=== PATIENT | male | born 1995 | race Two or more races ===

== ENCOUNTER → 2024-08-02 | Outpatient (CLI) | payer MEDICAID, SELFPAY | END | disposition home or self-care (01) | LOC: SWHD 11:07 | PROVIDERS: PCP Family Medicine; Referring Provider Family Medicine; Visit Provider Student in an Organized Health Care Education/Training Program | DX: L97.512 Non-pressure chronic ulcer of other part of right foot with fat layer exposed (principal); L97.518 Non-pressure chronic ulcer of other part of right foot with other specified severity; S90.424A Blister (nonthermal), right lesser toe(s), initial encounter; X58.XXXA Exposure to other specified factors, initial encounter; I10 Essential (primary) hypertension; E11.40 Type 2 diabetes mellitus with diabetic neuropathy, unspecified; Z79.4 Long term (current) use of insulin; F17.200 Nicotine dependence, unspecified, uncomplicated; R60.0 Localized edema | CPT/HCPCS: 97597; A9270 ==

== ENCOUNTER → 2024-09-03 | Outpatient (CLI) | payer MEDICAID, SELFPAY | END | disposition home or self-care (01) | LOC: SWHD 09:22 | PROVIDERS: PCP Family Medicine; Referring Provider Family Medicine; Visit Provider Student in an Organized Health Care Education/Training Program | DX: I96 Gangrene, not elsewhere classified (principal); L97.511 Non-pressure chronic ulcer of other part of right foot limited to breakdown of skin; L97.512 Non-pressure chronic ulcer of other part of right foot with fat layer exposed; S90.424A Blister (nonthermal), right lesser toe(s), initial encounter; X58.XXXA Exposure to other specified factors, initial encounter; I10 Essential (primary) hypertension; E11.40 Type 2 diabetes mellitus with diabetic neuropathy, unspecified; Z79.4 Long term (current) use of insulin; F17.200 Nicotine dependence, unspecified, uncomplicated; R60.0 Localized edema | CPT/HCPCS: 97597; A9270 ==

== ENCOUNTER → 2024-09-17 | Outpatient (CLI) | payer MEDICAID, SELFPAY | END | disposition home or self-care (01) | PROVIDERS: PCP Family Medicine; Referring Provider Family Medicine; Visit Provider Surgery | DX: I96 Gangrene, not elsewhere classified (principal); L97.511 Non-pressure chronic ulcer of other part of right foot limited to breakdown of skin; L97.512 Non-pressure chronic ulcer of other part of right foot with fat layer exposed; S90.424A Blister (nonthermal), right lesser toe(s), initial encounter; X58.XXXA Exposure to other specified factors, initial encounter; I10 Essential (primary) hypertension; E11.40 Type 2 diabetes mellitus with diabetic neuropathy, unspecified; Z79.4 Long term (current) use of insulin; F17.200 Nicotine dependence, unspecified, uncomplicated; R60.0 Localized edema | CPT/HCPCS: 99213; A9270; G0463 ==

== ENCOUNTER → 2024-09-23 | Outpatient (CLI) | payer MEDICAID, SELFPAY | END | disposition home or self-care (01) | PROVIDERS: PCP Family Medicine; Referring Provider Family Medicine; Visit Provider Student in an Organized Health Care Education/Training Program | DX: I96 Gangrene, not elsewhere classified (principal); L97.511 Non-pressure chronic ulcer of other part of right foot limited to breakdown of skin; S90.424A Blister (nonthermal), right lesser toe(s), initial encounter; X58.XXXA Exposure to other specified factors, initial encounter; I10 Essential (primary) hypertension; E11.40 Type 2 diabetes mellitus with diabetic neuropathy, unspecified; Z79.4 Long term (current) use of insulin; F17.200 Nicotine dependence, unspecified, uncomplicated; R60.0 Localized edema | CPT/HCPCS: 97597 ==

== ENCOUNTER → 2024-10-01 | Outpatient (CLI) | payer MEDICAID, SELFPAY | END | disposition home or self-care (01) | LOC: SWHD 13:15 | PROVIDERS: PCP Family Medicine; Referring Provider Family Medicine; Visit Provider Student in an Organized Health Care Education/Training Program | DX: I96 Gangrene, not elsewhere classified (principal); L97.518 Non-pressure chronic ulcer of other part of right foot with other specified severity; S90.424A Blister (nonthermal), right lesser toe(s), initial encounter; X58.XXXA Exposure to other specified factors, initial encounter; I10 Essential (primary) hypertension; E11.40 Type 2 diabetes mellitus with diabetic neuropathy, unspecified; Z79.4 Long term (current) use of insulin; F17.200 Nicotine dependence, unspecified, uncomplicated; R60.0 Localized edema | CPT/HCPCS: 97597 ==

== ENCOUNTER 2025-04-03 15:45 | Emergency (ER) | payer MEDICAID, SELFPAY ==
[2025-04-03 16:00] VITALS: BP 151/90; PULSE 105; RESP 20; TEMP 36.9; O2SAT 98
--- NOTE | 2025-04-03 16:18 | XR_ITS ---
Examination: Foot, left, 3 views Technique: AP, oblique, lateral views foot, 3 views Date and time of exam: April 03, 2025 1626 hours INDICATIONS: Foot pain 2 weeks with blood blister FINDINGS: Adequate bone density. No fracture or dislocation. No cortical bone destruction. No opaque foreign body IMPRESSION: No fracture or cortical bone destruction No foreign body. Soft tissue vascular calcification
--- NOTE | 2025-04-03 16:18 | XR_ITS ---
Examination: Foot, right, 3 views Technique: AP, oblique, lateral views foot, 3 views Date and time of exam: Visualized extremity thousand 25, 1626 hours INDICATIONS: Right foot pain beginning 2 weeks ago, no injury. FINDINGS: Moderate bunion deformity with soft tissue swelling at the first metatarsophalangeal joint. No fracture. Small erosions distal first metatarsal No foreign bodies IMPRESSION: Moderate bunion deformity Small erosions distal first metatarsal, differential would include gouty arthropathy
[2025-04-03 16:36] LABS: Basophils # (Auto) 0.0 Thou/mm3 (0.0-0.2); Basophils % (Auto) 1 % (0-2.5); Eosinophils # (Auto) 0.1 Thou/mm3 (0.0-0.5); Eosinophils % (Auto) 1 % (0-10); Hematocrit 39.8 % (41.0-53.0); Hemoglobin 13.8 g/dL (13.5-16.0); Immature Granulocytes Auto 0.02 Thou/mm3 (0.00-0.00); Lymphocytes # (Auto) 2.2 Thou/mm3 (1.0-4.8); Lymphocytes % (Auto) 31 % (10-50); Mean Corpuscular HGB Conc 34.7 g/dl (31.0-37.0); Mean Corpuscular Hemoglobin 30.2 pg (25.0-35.0); Mean Corpuscular Volume 87 fL (80-100); Monocytes # (Auto) 0.7 Thou/mm3 (0.0-0.8); Monocytes % (Auto) 9 % (0-12); Neutrophils # (Auto) 4.2 Thou/mm3 (1.8-7.7); Neutrophils % (Auto) 58 % (37-80); Nucleated Red Blood Cell # 0.00 Thou/mm3 (0.00-0.00); Nucleated Red Blood Cell % 0 /100 WBC (0); Platelet Count 316 Thou/mm3 (140-440); RDW Standard Deviation 39.7 fL (35.1-43.9); Red Blood Count 4.57 Miln/mm3 (4.50-5.90); White Blood Count 7.2 Thou/mm3 (3.8-10.6)
[2025-04-03 16:58] LABS: Alanine Aminotransferase 42 U/L (10-49); Albumin, Serum 4.4 gm/dL (3.5-5.0); Albumin/Globulin Ratio 1.5 (1.2-2.2); Alkaline Phosphatase 146 U/L (46-116); Anion Gap 9 (7-16); Aspartate Amino Transferase 23 U/L (0-34); BUN/Creatinine Ratio 10 Ratio (12-20); Bilirubin,Total 0.5 mg/dL (0.3-1.2); Blood Urea Nitrogen 17 mg/dL (9-23); C-Reactive Protein < 0.5 mg/dL (0.0-0.9); Calcium 9.2 mg/dL (8.3-10.6); Calcium (Corrected) 9.2 mg/dL (8.5-10.1); Carbon Dioxide 28.2 mMol/L (20.0-31.0); Chloride 101 mMol/L (98-107); Creatinine (Component) 1.7 mg/dL (0.6-1.3); Globulin 3.0 gm/dL (2.3-3.5); Glucose 265 mg/dL (74-106); Osmolality,Calculated 286 (275-295); Potassium 4.4 mMol/L (3.4-5.1); Sodium 138 mMol/L (136-145); Total Protein 7.4 gm/dL (5.7-8.2); eGFR 54 See Note
--- NOTE | 2025-04-03 17:17 | PD.EDRME ---
Rapid Medical Screening Exam E Arrival date/time: 04/03/25 15:45 This is a 30-year-old male that comes into the emergency room with complaints of wounds to his left lower foot and also wounds in between his 1st and 2nd digit on his toes. Patient states he has had grain green in the past. Patient reports he is an uncontrolled diabetic and states he has not been take care of his diabetes. Patient also has a history of high blood pressure. Patient denies fever or chills. I have greeted and performed a focused initial assessment of this patient. Initial appropriate labs ordered at this time. A comprehensive ED assessment and evaluation of the patient and analysis of all test and completion of medical decision making process will be conducted by additional ED provider. Chief Complaint: Skin/Abscess/Foreign Body Time Seen by Provider: 04/03/25 15:54 Vital signs: Vital Signs Temperature 98.5 F 04/03/25 16:00 Pulse Rate 105 H 04/03/25 16:00 Respiratory Rate 20 04/03/25 16:00 Blood Pressure 151/90 H 04/03/25 16:00 Pulse Oximetry (%) 98 04/03/25 16:00 Oxygen Delivery Method Room Air 04/03/25 16:00
[2025-04-03] MEDS: SODIUM CHLORIDE 0.9% 1000 ML 1,000 ML 999 ML IV (19:39)
[2025-04-03] MEDS: Vancomycin Inj 1,000 MG in SODIUM CHLORIDE 0.9% 250 ML 250 ML 150 MG IV (19:52)
[2025-04-03 20:15] LABS: Uric Acid 7.3 mg/dL (3.7-9.2)
--- NOTE | 2025-04-03 21:16 | PD.EDSKIN ---
ED Skin Abcess FB-RME/HPI General Chief complaint: Skin/Abscess/Foreign Body Stated complaint: BLOOD BLISTER LEFT FOOT Time Seen by Provider: 04/03/25 15:54 Arrival date/time: 04/03/25 15:45 This is a 30-year-old male that comes into the emergency room with complaints of wounds to his left lower foot and also wounds in between his 1st and 2nd digit on his toes. . Patient reports he is an uncontrolled diabetic and states he has not been take care of his diabetes. Patient also complaining of right foot pain because of bunion Limitations: no limitations RME / HPI RME / HPI narrative: 04/03/25 15:45 This is a 30-year-old male that comes into the emergency room with complaints of wounds to his left lower foot and also wounds in between his 1st and 2nd digit on his toes. Patient states he has had grain green in the past. Patient reports he is an uncontrolled diabetic and states he has not been take care of his diabetes. Patient also has a history of high blood pressure. Patient denies fever or chills. I have greeted and performed a focused initial assessment of this patient. Initial appropriate labs ordered at this time. A comprehensive ED assessment and evaluation of the patient and analysis of all test and completion of medical decision making process will be conducted by additional ED provider. Related Data Home Medications ?Medication ?Instructions ?Recorded ?Confirmed insulin glargine 100 unit/mL (3 15 unit subcut QDAY 07/17/24 07/17/24 mL) subcutaneous pen (Basaglar KwikPen U-100 Insulin) insulin glargine 100 unit/mL (3 20 unit subcut HS 07/17/24 07/17/24 mL) subcutaneous pen (Basaglar KwikPen U-100 Insulin) Previous Rx's ?Medication ?Instructions ?Recorded blood sugar diagnostic (Accu-Chek #50 ea 07/20/24 Karena Plus test strips) blood-glucose sensor (FreeStyle #2 ea 07/20/24 Adriana 3 Sensor device) lancets 18 gauge #100 ea 07/20/24 losartan 25 mg tablet 25 mg PO QDAY #30 tabs 07/20/24 clindamycin HCl 300 mg capsule 300 mg PO Q6H #40 caps 04/03/25 doxycycline monohydrate 100 mg 100 mg PO BID #20 caps 04/03/25 capsule mupirocin 2 % topical ointment 1 applic topical TID #22 grams 04/03/25 Allergies Allergy/AdvReac Type Severity Reaction Status Date / Time No Known Allergies Allergy Verified 04/03/25 15:46 Review of Systems Review of Systems Systems Reviewed: All systems reviewed, normal except as documented Constitutional Constitutional: Reports system reviewed and no additional complaints, except as documented and Reports as per HPI Cardiovascular Cardiovascular: Reports system reviewed and no additional complaints, except as documented and Reports as per HPI Respiratory Respiratory: Reports system reviewed and no additional complaints, except as documented and Reports as per HPI Musculoskeletal Musculoskeletal: Reports system reviewed and no additional complaints, except as documented, Reports as per HPI and Reports other (Foot pain) Integumentary/Breasts Skin/Breast: Reports other (Blister) Neurologic Neurologic: Reports system reviewed and no additional complaints, except as documented and Reports as per HPI Past Medical History Past Medical History CARDIAC: Negative Cardiac Disorders or Congestive Heart Failure RESPIRATORY: Negative Chronic Obstructive Pulmonary Disease (COPD) or Asthma GENITOURINARY: Negative Renal Disease ENDOCRINE: Positive Diabetes Mellitus Type 2; Negative Endocrine Disorders or Diabetes Mellitus Type 1 HEMATOLOGIC: Negative Sickle Cell Disease Family History FAMILY HISTORY: Negative Family Cardiac Disorders Social History SMOKING STATUS: Current every day smoker ED Exam General Limitations: Present no limitations General appearance: Present alert and in no apparent distress Head Head exam: Present atraumatic Eye Eye exam: Present normal appearance, PERRL and EOMI ENT ENT exam: Present normal exam, normal oropharynx and mucous membranes moist Neck Neck exam: Present normal inspection, full ROM and trachea midline; Absent tenderness, meningismus, lymphadenopathy or thyromegaly Chest Chest inspection: Present normal inspection and symmetric chest wall rise; Absent tenderness, rash or abscess Respiratory Respiratory exam: Present normal lung sounds bilaterally; Absent respiratory distress, wheezes, stridor, accessory muscle use or prolonged expiratory phase Cardiovascular Cardiovascular exam: Present regular rate, normal rhythm and normal heart sounds; Absent bradycardia, tachycardia, irregular rhythm or systolic murmur Abdominal Exam Abdominal exam: Present soft and normal bowel sounds Extremities Exam Extremities exam: Present normal inspection and full ROM Expanded Lower Extremity Exam Foot/toe exam: Present tenderness and other (Noted a woundOn the right great toe and some redness on the second toe of the right foot seems infected no cellulitis no abscess no open wound no ulcer ROM intact neurovascular intact patient also noted to have blister on the left plantar foot but no abscess no cellulitis no undermining no ulcer ROM); Absent swelling, abrasion, laceration, ecchymosis, deformity, crepitus, dislocation, erythema, amputation, puncture wound, foreign body, calcaneal tenderness, tenderness at base of 5th metatarsal, nail avulsion or subungual hematoma Back Exam Back exam: Present normal inspection and full ROM Neurological Exam Neurological exam: Present alert, oriented X3, CN II-XII intact, normal gait and reflexes normal; Absent motor sensory deficit Psychiatric Psychiatric exam: Present normal affect and normal mood Skin Skin exam: Present warm, dry, intact, normal color and other (Noted blister on the left plantar foot and redness swelling on the second toe right foot no abscess no cellulitis) Course Quality Measures none Orders Category Date Time Status XR foot comp LT min 3V Stat Exams 04/03/25 16:18 Completed XR foot comp RT min 3V Stat Exams 04/03/25 16:18 Completed Blood Culture (Lab) Stat Lab 04/03/25 16:28 Received CBC Stat Lab 04/03/25 16:28 Completed CRP [C-Reactive Protein] Stat Lab 04/03/25 16:28 Completed Comprehensive Metabolic Panel Stat Lab 04/03/25 16:28 Completed Uric Acid Stat Lab 04/03/25 16:28 Completed Sodium Chloride 0.9% 1000 ml [Ns] 1,000 ml Med 04/03/25 19:23 Discontinued IV 999 mls/hr Vancomycin Inj 1,000 mg Med 04/03/25 19:23 Discontinued Sodium Chloride 0.9% 250 ml [Ns] 250 ml IV X1 Vital Signs Vital signs: Vital Signs Temperature 98.5 F 04/03/25 16:00 Pulse Rate 105 H 04/03/25 16:00 Respiratory Rate 20 04/03/25 16:00 Blood Pressure 151/90 H 04/03/25 16:00 Pulse Oximetry (%) 98 04/03/25 16:00 Oxygen Delivery Method Room Air 04/03/25 16:00 Oxygen saturation is 98% in room air Skin / Abscess / Foreign Body MDM Narrative MDM Narrative:: This is a 30-year-old male that comes into the emergency room with complaints of wounds to his left lower foot and also wounds in between his 1st and 2nd digit on his toes. . Patient reports he is an uncontrolled diabetic and states he has not been take care of his diabetes. Patient also complaining of right foot pain because of bunion physical examination patient is awake alert oriented not in distress nontoxic looking both foot exam shows Noted a woundOn the right great toe and some redness on the second toe of the right foot seems infected no cellulitis no abscess no open wound no ulcer ROM intact neurovascular intact patient also noted to have blister on the left plantar foot but no abscess no cellulitis no undermining no ulcer ROM blood test showed no leukocytosis no anemia kidney and liver function is normal patient glucose is 260 thus a bolus of normal saline was given no need for regular insulin repeat Accu-Chek was 241 patient will just continue his diabetic meds medication at home patient x-ray showed no osteomyelitis uric acid is normal CRP is normal at this point patient will be treated as a diabetic foot wound care was done on both foot apply triple antibiotic ointment patient was given vancomycin and discharged with clindamycin and doxycycline she was advised to see an podiatry for further evaluation and treatment of his bunion and his diabetic foot also he will follow-up here in the emergency room in 2 days for reevaluation and wound check for any worsening symptoms he is informed to return in the emergency room immediately or call 911 Patient was discharged with comfortable condition walking with stable gait. Patient verbalized no further complains explained diagnosis and answered patient question. Patient is comfortable with the proposed management plan including the need to follow up with his/her primary care physician and any specialist if applicable Discussed patient for any urgent condition or worsening sx, He/She needed to go to emergency room immediately or call 911. Patient acknowledge the responsibility to follow up as instructed and to monitor her/his symptoms. For any persistence of the symptoms for more than 3-5 days return precaution advised. Discussed the result of the test and was given printed discharge instruction Patient data External records reviewed:: [facility] previous records Clinical information provided by:: patient Social determinants that could affect healthcare access:: none Patient has the following chronic illnesses:: None How is presenting disease/condition affected by chronic disease/condition?: no chronic disease (None) Evaluation data The following diagnostics were reviewed and interpreted by me:: lab results and radiology exam(s) Lab and/or radiology exams considered but not ordered:: Reviewed Interpretation Summary: Reviewed Medications / Prescriptions Medications or Prescriptions considered but not ordered:: Given Medication administrations:: Medication Administration History Discontinued Medications Sodium Chloride (Ns) 1,000 mls @ 999 mls/hr IV .Q1H1M ONE Stop: 04/03/25 20:23 Last Infusion: 04/03/25 20:19 Dose: Infused Documented By: Admin: 04/03/25 19:39 Dose: 999 mls/hr Documented By: DOREEN Vancomycin HCl 1,000 mg/ (Sodium Chloride) 250 mls @ 150 mls/hr IV X1 ONE Stop: 04/03/25 21:02 Last Admin: 04/03/25 19:52 Dose: 150 mls/hr Documented By: SF Given Consultations Consultation(s) initiated? (list below): No Diagnosis Skin/Abscess Differential Diagnosis: abscess of skin or subcutaneous tissue, cellulitis and other (Diabetic foot) Most likely diagnosis given after review of the tests above:: Diabetic foot Admission Indicated Admission indicated?: not indicated Explain why admission is indicated or not indicated:: Not indicated Admission Request Was there a request for admission?: No Admission Attestation Admission request attestation: Not indicated Disposition Plan Disposition Plan: Discharge Discharge Attestation Discharge Attestation: The patient and all family members were given an opportunity to ask questions and understood the discharge instructions. Discharge instructions specifically effects, indications for sooner follow up or return to the emergency department, and the expected course of current diagnosis. Patient condition: Stable Discharge Plan Plan Patient Disposition: HOME (Self Care) Patient condition on transfer: Stable Prescriptions/Referrals Prescriptions/Med Rec: New clindamycin HCl 300 mg capsule 300 mg PO Q6H Qty: 40 0RF mupirocin 2 % ointment 1 applic topical TID Qty: 22 0RF doxycycline monohydrate 100 mg capsule 100 mg PO BID Qty: 20 0RF No Action insulin glargine [Basaglar KwikPen U-100 Insulin] 100 unit/mL (3 mL) insulin pen 15 unit SUBCUT QDAY insulin glargine [Basaglar KwikPen U-100 Insulin] 100 unit/mL (3 mL) insulin pen 20 unit SUBCUT HS losartan 25 mg tablet 25 mg PO QDAY Qty: 30 0RF (DME) FreeStyle Adriana 3 Sensor Device See Rx Instructions .Route Qty: 2 3RF Rx Instructions: As directed (DME) lancets 18 gauge misc See Rx Instructions .Route Qty: 100 2RF Rx Instructions: As directed (DME) Accu-Chek Karena Plus test strp Strip See Rx Instructions .Route Qty: 50 2RF Rx Instructions: As directed Referrals: Lon Moise MD [Primary Care Provider] - In 1 week Problem List Clinical Impression: Blister of foot, left, Diabetic foot, Bunion of great toe of right foot, Hyperglycemia Patient/Caregiver Discharge Instructions Education Materials: Diabetes: Inspecting Your Feet, Wound Care, Understanding Bunions, ED Blister (Adult), ED Diabetes with High Blood Sugar Additional Instructions: Follow-up with your primary care physician in 2 days for reevaluation and to be referred to podiatry for further evaluation and treatment of diabetic foot and bunion on the right foot you also need to see your emergency medical technician basic for further evaluation and treatment of your hyperglycemia check your blood sugar twice a day and if your blood sugar greater than 250 or less than 80 or become symptomatic return to the emergency room immediately or call 911 take your medication and finish the course daily wound care daily it is very important to return in the emergency room in 2 days for reevaluation and wound check of your diabetic foot Print Language: Yakut Stand Alone Forms: [employer] Award Info., Patient Portal Info Letter PA/LOBSTER MAN Supervising Physician PA/DERICK Supervising Physician: dr severino
== END 2025-04-03 21:46 | disposition home or self-care (01) ==
PROVIDERS: Nurse Practitioner Family; Emergency Provider Emergency Medicine; PCP Family Medicine
DX: S90.822A Blister (nonthermal), left foot, initial encounter (principal); E11.65 Type 2 diabetes mellitus with hyperglycemia; M21.611 Bunion of right foot; E11.69 Type 2 diabetes mellitus with other specified complication
CPT/HCPCS: 36415; 73630; 80053; 84550; 85025; 86140; 87040; 96365; 96366; 99284; J3373; J7030; J7050

== ENCOUNTER 2025-05-15 17:08 | Emergency (ER) | payer MEDICAID, SELFPAY ==
[2025-05-15 17:10] VITALS: BP 114/58; PULSE 122; RESP 22; TEMP 36.9; O2SAT 100; BMI 29.2
--- NOTE | 2025-05-15 17:12 | EKG_ITS ---
[facility] Test Date: 2025-05-15 Pat Name: LINDSAY EGAN Department: Room: - Gender: Male Curber: : 1995 Requested By: Symone Salmeron Order Number: [id number] Reading MD: Symone Salmeron Measurements Intervals [place] Rate: 121 P: 58 PA: 125 QRS: 62 QRSD: 74 T: 62 QT: 281 QTc: 399 Interpretive Statements SINUS TACHYCARDIA ABNORMAL RHYTHM ECG Compared to ECG 07/17/2024 19:45:42 Sinus rhythm no longer present /[id number]/[id number]
--- NOTE | 2025-05-15 17:12 | XR_ITS ---
Examination: AP chest single view TECHNIQUE: AP portable semiupright chest single view Date and time: May 15, 2025, 1724 hours, comparison July 12, 2023 INDICATIONS: Chest pain beginning 2 days ago. FINDINGS: Normal heart size. Lungs are clear. The osseous structures are intact Impression : No active disease.
[2025-05-15 17:15] VITALS: PULSE 125; RESP 20; O2SAT 98
[2025-05-15 17:27] VITALS: BP 144/74; PULSE 118; RESP 20; O2SAT 99
[2025-05-15] MEDS: SODIUM CHLORIDE 0.9% 1000 ML 1,000 ML 999 ML IV ×3 (17:30→21:47)
--- NOTE | 2025-05-15 17:32 | PD.EDSYNC ---
ED Syncope RME/HPI General Chief Complaint: General Adult/Misc Complain Stated Complaint: WEAKNESS, DIZZINESS Time Seen by Provider: 05/15/25 17:11 Arrival date/time: 05/15/25 17:08 Limitations: no limitations RME / HPI RME / HPI narrative: 30-year-old male with a history of hypertension diabetes brought in by EMS for near syncopal episode. 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 He denies any falls or injuries. He states he is diabetic and has not used his insulin in 2 days. He states he was incarcerated and has not had access to his medications. He denies any chest pain. Has abdominal pain, nausea, vomiting. No fevers or chills. No lower leg edema. He has no other acute complaints. Related Data Home Medications ?Medication ?Instructions ?Recorded ?Confirmed insulin glargine 100 unit/mL (3 15 unit subcut QDAY 07/17/24 07/17/24 mL) subcutaneous pen (Basaglar KwikPen U-100 Insulin) insulin glargine 100 unit/mL (3 20 unit subcut HS 07/17/24 07/17/24 mL) subcutaneous pen (Basaglar KwikPen U-100 Insulin) Previous Rx's ?Medication ?Instructions ?Recorded blood sugar diagnostic (Accu-Chek #50 ea 07/20/24 Karena Plus test strips) blood-glucose sensor (FreeStyle #2 ea 07/20/24 Adriana 3 Sensor device) lancets 18 gauge #100 ea 07/20/24 losartan 25 mg tablet 25 mg PO QDAY #30 tabs 07/20/24 clindamycin HCl 300 mg capsule 300 mg PO Q6H #40 caps 04/03/25 doxycycline monohydrate 100 mg 100 mg PO BID #20 caps 04/03/25 capsule mupirocin 2 % topical ointment 1 applic topical TID #22 grams 04/03/25 Allergies Allergy/AdvReac Type Severity Reaction Status Date / Time No Known Allergies Allergy Verified 04/03/25 15:46 Review of Systems Review of Systems Systems Reviewed: All systems reviewed, normal except as documented ED Exam General Limitations: Present no limitations General appearance: Present alert and in no apparent distress Head Head exam: Present atraumatic Eye Eye exam: Present normal appearance, PERRL and EOMI ENT ENT exam: Present normal exam, normal oropharynx and mucous membranes moist Neck Neck exam: Present normal inspection, full ROM and trachea midline Chest Chest inspection: Present normal inspection and symmetric chest wall rise Respiratory Respiratory exam: Present normal lung sounds bilaterally Cardiovascular Cardiovascular exam: Present regular rate, normal rhythm and normal heart sounds Abdominal Exam Abdominal exam: Present soft and normal bowel sounds Extremities Exam Extremities exam: Present normal inspection and full ROM Back Exam Back exam: Present normal inspection and full ROM Neurological Exam Neurological exam: Present alert, oriented X3 and CN II-XII intact Psychiatric Psychiatric exam: Present normal affect and normal mood Skin Skin exam: Present warm, dry, intact and normal color Course Course Course Narrative: Labs reviewed, patient remains tachycardic with a heart rate of 118 after liter bolus. He has ODETTE with a creatinine of 2.4. Sodium is 132. Potassium 4.4. Bicarb is 19.6. Beta hydroxybutyrate is unremarkable. Labs are discussed with patient, he states he now has bilateral lower leg cramping. Medications were ordered. Quality Measures none Orders Category Date Time Status EKG (ED ONLY) *Do not use* NOW Care 05/15/25 17:12 Completed EKG (ED Only) Stat Exams 05/15/25 17:12 Draft XR chest 1V Stat Exams 05/15/25 17:12 Completed Alcohol, Blood Medical Stat Lab 05/15/25 17:24 Completed BNP [B-Type Natriuretic Peptide] Stat Lab 05/15/25 17:24 Completed CBC Stat Lab 05/15/25 17:24 Completed CMP [Comprehensive Metabolic Panel] Stat Lab 05/15/25 17:24 Completed CMP [Comprehensive Metabolic Panel] Stat Lab 05/15/25 20:40 Completed Drug Screen,Urine Stat Lab 05/15/25 20:37 Completed Ketone [Beta Hydroxybutyrate] Stat Lab 05/15/25 17:24 Completed Lipase Stat Lab 05/15/25 17:24 Completed Mag [Magnesium] Stat Lab 05/15/25 17:24 Completed Troponin I Stat Lab 05/15/25 17:24 Completed UA, C/S IF [Urinalysis, C/S if Indicated] Stat Lab 05/15/25 20:37 Completed HYDROcodone*/APAP 5/325 [[place] 5/325] Med 05/15/25 18:26 Discontinued 1 tab PO X1 ONE Magnesium Oxide [Mag-Ox 400] Med 05/15/25 18:03 Discontinued 400 mg PO X1 ONE Morphine Inj Med 05/15/25 19:33 Discontinued 2 mg IVP X1 ONE Ondansetron Inj [Zofran Inj] Med 05/15/25 21:33 Discontinued 4 mg IVP X1 ONE Sodium Chloride 0.9% 1000 ml [Ns] 1,000 ml Med 05/15/25 17:12 Discontinued IV 999 mls/hr Sodium Chloride 0.9% 1000 ml [Ns] 1,000 ml Med 05/15/25 18:03 Discontinued IV 999 mls/hr Sodium Chloride 0.9% 1000 ml [Ns] 1,000 ml Med 05/15/25 21:33 Active IV 999 mls/hr methocarbamoL [Robaxin] Med 05/15/25 18:26 Discontinued 750 mg PO X1 ONE Vital Signs Vital signs: Vital Signs Temperature 98.5 F 05/15/25 17:10 Pulse Rate 122 H 05/15/25 17:10 Respiratory Rate 22 H 05/15/25 17:10 Blood Pressure 114/58 L 05/15/25 17:10 Pulse Oximetry (%) 100 05/15/25 17:10 Oxygen Delivery Method Room Air 05/15/25 17:10 Syncope MDM Narrative MDM Narrative:: 30-year-old male with a history of hypertension diabetes brought in by EMS for near syncopal episode. 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 He denies any falls or injuries. He states he is diabetic and has not used his insulin in 2 days. He states he was incarcerated and has not had access to his medications. He denies any chest pain. Has abdominal pain, nausea, vomiting. No fevers or chills. No lower leg edema. He has no other acute complaints. On exam, patient is nontoxic-appearing although he is tachycardic. He is answering questions appropriately. He has no lower leg edema. No fevers or chills. Other than his tachycardia, his vital signs are otherwise unremarkable. Workup was consistent with an ODETTE. His creatinine did improve after he received 2 L of normal saline. Patient had a single episode of emesis here. He reports symptomatic improvement. Patient was advised to discontinue methamphetamine abuse. Increase oral hydration. Follow-up with his doctor this week for close recheck. Return at anytime for any worsening emergent changes. Patient data External records reviewed:: EMS form Clinical information provided by:: patient and EMS Social determinants that could affect healthcare access:: substance use Patient has the following chronic illnesses:: Diabetes How is presenting disease/condition affected by chronic disease/condition?: exacerbated by Evaluation data The following diagnostics were reviewed and interpreted by me:: lab results (ODETTE, hyperglycemia without diabetic ketoacidosis), radiology exam(s) (Clear expanded lungs without any mass or infiltrate) and EKG tracing(s) (Sinus tachycardia [address] changes or dynamic T waves.) Lab and/or radiology exams considered but not ordered:: n/a Interpretation Summary: ODETTE, hyperglycemia, tachycardia Medications / Prescriptions Medications or Prescriptions considered but not ordered:: n/a Medication administrations:: Medication Administration History Sodium Chloride (Ns) 1,000 mls @ 999 mls/hr IV .Q1H1M ONE Stop: 05/15/25 22:33 Discontinued Medications Hydrocodone Bitart/Acetaminophen (Hydrocodone/Apap 5/325 Tablet) 1 tab PO X1 ONE Stop: 05/15/25 18:27 Last Admin: 05/15/25 18:36 Dose: 1 tab Documented By: Sodium Chloride (Ns) 1,000 mls @ 999 mls/hr IV .Q1H1M ONE Stop: 05/15/25 18:12 Last Infusion: 05/15/25 18:32 Dose: Infused Documented By: Admin: 05/15/25 17:30 Dose: 999 mls/hr Documented By: Sodium Chloride (Ns) 1,000 mls @ 999 mls/hr IV .Q1H1M ONE Stop: 05/15/25 19:03 Last Infusion: 05/15/25 19:37 Dose: Infused Documented By: Admin: 05/15/25 18:36 Dose: 999 mls/hr Documented By: PITO Magnesium Oxide (Magnesium Oxide 400 Mg Tablet) 400 mg PO X1 ONE Stop: 05/15/25 18:04 Last Admin: 05/15/25 18:36 Dose: 400 mg Documented By: PITO Methocarbamol (Methocarbamol 500 Mg Tablet) 750 mg PO X1 ONE Stop: 05/15/25 18:27 Last Admin: 05/15/25 19:40 Dose: 750 mg Documented By: Morphine Sulfate (Morphine Sulf Inj 10 Mg/Ml Vial) 2 mg IVP X1 ONE Stop: 05/15/25 19:34 Last Admin: 05/15/25 19:41 Dose: 2 mg Documented By: EF Ondansetron HCl (Ondansetron Inj 2 Mg/Ml Inj 2 Ml) 4 mg IVP X1 ONE; Protocol Stop: 05/15/25 21:34 See above Consultations Consultation(s) initiated? (list below): No Diagnosis Syncope Differential Diagnosis: dehydration Most likely diagnosis given after review of the tests above:: ODETTE, dehydration, methamphetamine abuse, diabetes Admission Indicated Admission indicated?: not indicated Admission Request Was there a request for admission?: No Disposition Plan Disposition Plan: Discharge Discharge Attestation Discharge Attestation: The patient and all family members were given an opportunity to ask questions and understood the discharge instructions. Discharge instructions specifically effects, indications for sooner follow up or return to the emergency department, and the expected course of current diagnosis. Patient condition: Stable Discharge Plan Plan Patient Disposition: HOME (Self Care) Patient condition on transfer: Stable Prescriptions/Referrals Prescriptions/Med Rec: No Action insulin glargine [Basaglar KwikPen U-100 Insulin] 100 unit/mL (3 mL) insulin pen 15 unit SUBCUT QDAY insulin glargine [Basaglar KwikPen U-100 Insulin] 100 unit/mL (3 mL) insulin pen 20 unit SUBCUT HS losartan 25 mg tablet 25 mg PO QDAY Qty: 30 0RF (DME) FreeStyle Adriana 3 Sensor Device See Rx Instructions .Route Qty: 2 3RF Rx Instructions: As directed (DME) lancets 18 gauge misc See Rx Instructions .Route Qty: 100 2RF Rx Instructions: As directed (DME) Accu-Chek Karena Plus test strp Strip See Rx Instructions .Route Qty: 50 2RF Rx Instructions: As directed clindamycin HCl 300 mg capsule 300 mg PO Q6H Qty: 40 0RF mupirocin 2 % ointment 1 applic topical TID Qty: 22 0RF doxycycline monohydrate 100 mg capsule 100 mg PO BID Qty: 20 0RF Referrals: No Primary/Family,Physician [Referring Provider] - In 1 week Problem List Clinical Impression: Tachycardia, Methamphetamine abuse, ODETTE (acute kidney injury) Patient/Caregiver Discharge Instructions Education Materials: Addiction: Getting Help, Acute Kidney Failure Dc Additional Instructions: - Maintain oral hydration. - Discontinue methamphetamine abuse. - Follow-up with your doctor this week for recheck. - Return as needed for any worsening or emergent changes. Print Language: Barbadian Stand Alone Forms: [employer] Info., Patient Portal Info Letter
[2025-05-15 17:38] LABS: Beta Hydroxybutyrate 0.3 mmol/L (<0.6)
[2025-05-15 17:43] LABS: Basophils # (Auto) 0.1 Thou/mm3 (0.0-0.2); Basophils % (Auto) 0 % (0-2.5); Eosinophils # (Auto) 0.1 Thou/mm3 (0.0-0.5); Eosinophils % (Auto) 0 % (0-10); Hematocrit 38.8 % (41.0-53.0); Hemoglobin 13.3 g/dL (13.5-16.0); Immature Granulocytes Auto 0.03 Thou/mm3 (0.00-0.00); Lymphocytes # (Auto) 2.5 Thou/mm3 (1.0-4.8); Lymphocytes % (Auto) 22 % (10-50); Mean Corpuscular HGB Conc 34.3 g/dl (31.0-37.0); Mean Corpuscular Hemoglobin 30.4 pg (25.0-35.0); Mean Corpuscular Volume 89 fL (80-100); Monocytes # (Auto) 1.2 Thou/mm3 (0.0-0.8); Monocytes % (Auto) 10 % (0-12); Neutrophils # (Auto) 7.9 Thou/mm3 (1.8-7.7); Neutrophils % (Auto) 67 % (37-80); Nucleated Red Blood Cell # 0.00 Thou/mm3 (0.00-0.00); Nucleated Red Blood Cell % 0 /100 WBC (0); Platelet Count 314 Thou/mm3 (140-440); RDW Standard Deviation 39.6 fL (35.1-43.9); Red Blood Count 4.38 Miln/mm3 (4.50-5.90); White Blood Count 11.7 Thou/mm3 (3.8-10.6)
[2025-05-15 17:55] LABS: Alanine Aminotransferase 51 U/L (10-49); Albumin, Serum 4.5 gm/dL (3.5-5.0); Albumin/Globulin Ratio 1.6 (1.2-2.2); Alcohol, Blood Medical < 3.0 mg/dL (0-10.0); Alkaline Phosphatase 112 U/L (46-116); Anion Gap 16 (7-16); Aspartate Amino Transferase 57 U/L (0-34); BUN/Creatinine Ratio 15 Ratio (12-20); Bilirubin,Total 0.8 mg/dL (0.3-1.2); Blood Urea Nitrogen 35 mg/dL (9-23); Calcium 10.2 mg/dL (8.3-10.6); Calcium (Corrected) 10.2 mg/dL (8.5-10.1); Carbon Dioxide 19.6 mMol/L (20.0-31.0); Chloride 96 mMol/L (98-107); Creatinine (Component) 2.4 mg/dL (0.6-1.3); Estimated Creatinine Clearance 52.1 mL/min (>60); Globulin 2.8 gm/dL (2.3-3.5); Glucose 310 mg/dL (74-106); Lipase 24 U/L (12-53); Magnesium 1.5 mg/dL (1.6-2.6); Osmolality,Calculated 284 (275-295); Potassium 4.4 mMol/L (3.4-5.1); Sodium 132 mMol/L (136-145); Total Protein 7.3 gm/dL (5.7-8.2); Troponin I < 0.020 ng/mL (0.0-0.045); eGFR 36 See Note
[2025-05-15 18:02] LABS: B-Type Natriuretic Peptide < 20 pg/mL (0-100)
[2025-05-15] MEDS: MAGNESIUM OXIDE 400 MG TABLET PO (18:36)
[2025-05-15] MEDS: HYDROcodone/APAP 5/325 TABLET 1 TAB PO (18:36)
[2025-05-15] MEDS: MORPHINE SULF INJ 10 MG/ML VIAL 2 MG IVP (19:41)
[2025-05-15 20:49] LABS: Collection Type, Urine Voided; Squamous Epithelial Cell,Urine 0 /hpf (0-5)
[2025-05-15 21:09] LABS: Bilirubin,Urine Negative (Negative); Blood,Urine 2+ (Negative); Clarity,Urine Clear (Clear/Hazy); Color,Urine Yellow (Lt Yel-Yel); Culture Indicated,Urine Not Indicated; Glucose, Urine 3+ (Negative); Hyaline Casts,Urine 2 /hpf (0-1); Ketones,Urine Negative (Negative); Leukocyte Esterase,Urine Negative (Negative); Nitrite,Urine Negative (Negative); PH,Urine 6.0 (5.0-7.0); Protein,Urine 3+ (Neg - Trace); RBC,Urine 9 /hpf (0-3); Specific Gravity,Urine 1.024 (1.001-1.035); Urobilinogen,Urine Negative mg/dL (0.0-1.0); WBC,Urine 6 /hpf (0-5)
[2025-05-15 21:11] LABS: Amphetamine/Methamp Scrn,U Positive (Negative); Barbiturate Screen,Urine Negative (Negative); Benzodiazepines Screen,Urine Negative (Negative); Benzoylecgonine Screen, Ur Negative (Negative); Fentanyl Screen,Urine Negative (Negative); Opiate Screen,Urine Positive (Negative); THC Screen,Urine Negative (Negative)
[2025-05-15 21:11] LABS: Alanine Aminotransferase 54 U/L (10-49); Albumin, Serum 4.2 gm/dL (3.5-5.0); Albumin/Globulin Ratio 1.7 (1.2-2.2); Alkaline Phosphatase 105 U/L (46-116); Anion Gap 10 (7-16); Aspartate Amino Transferase 75 U/L (0-34); BUN/Creatinine Ratio 20 Ratio (12-20); Bilirubin,Total 0.8 mg/dL (0.3-1.2); Blood Urea Nitrogen 34 mg/dL (9-23); Calcium 9.1 mg/dL (8.3-10.6); Calcium (Corrected) 9.1 mg/dL (8.5-10.1); Carbon Dioxide 23.8 mMol/L (20.0-31.0); Chloride 102 mMol/L (98-107); Creatinine (Component) 1.7 mg/dL (0.6-1.3); Estimated Creatinine Clearance 73.5 mL/min (>60); Globulin 2.5 gm/dL (2.3-3.5); Glucose 213 mg/dL (74-106); Osmolality,Calculated 285 (275-295); Potassium 4.0 mMol/L (3.4-5.1); Sodium 136 mMol/L (136-145); Total Protein 6.7 gm/dL (5.7-8.2); eGFR 54 See Note
[2025-05-15 21:17] LABS: Sperm,Urine Present
[2025-05-15 21:34] VITALS: BP 178/93; PULSE 120; RESP 18; TEMP 37.3; O2SAT 99
[2025-05-15] MEDS: ONDANSETRON INJ 2 MG/ML INJ 2 ML 4 MG IVP (21:47)
[2025-05-15 23:41] VITALS: BP 149/93; PULSE 112; RESP 16; O2SAT 99
[2025-05-15 23:54] VITALS: BP 149/93; PULSE 111
[2025-05-15] MEDS: METOPROLOL SUCCINATE XL 25 MG TABCR 100 MG PO (23:54)
== END 2025-05-16 00:03 | disposition home or self-care (01) ==
PROVIDERS: Physician Assistant Medical; Emergency Provider Emergency Medicine; PCP Family Medicine
DX: N17.9 Acute kidney failure, unspecified (principal); F15.10 Other stimulant abuse, uncomplicated; R00.0 Tachycardia, unspecified; E11.65 Type 2 diabetes mellitus with hyperglycemia; I10 Essential (primary) hypertension; T38.3X6A Underdosing of insulin and oral hypoglycemic [antidiabetic] drugs, initial encounter; Z91.138 Patient's unintentional underdosing of medication regimen for other reason; Z79.4 Long term (current) use of insulin; Z79.899 Other long term (current) drug therapy
CPT/HCPCS: 36415; 71045; 80053; 80307; 80320; 81001; 82010; 83690; 83735; 83880; 84484; 85025; 93005; 96361; 96374; 96375; 99283; J2270; J2405; J7030; A9270; G0480

== ENCOUNTER 2025-05-19 15:04 | Emergency (ER) | payer MEDICAID, SELFPAY ==
[2025-05-19 15:04] VITALS: BMI 29.2
[2025-05-19 15:42] VITALS: BP 132/87; PULSE 97; RESP 20; TEMP 37.2; O2SAT 99
--- NOTE | 2025-05-19 15:46 | XR_ITS ---
Examination: Foot, right, 3 views Technique: AP, oblique, lateral views foot, 3 views Date and time of exam: May 19, 2025 1549 hours INDICATIONS: Redness swelling and pain involving the first digit beginning 3 days ago. FINDINGS: Moderate bunion deformity. Prominent soft tissue swelling medial to the first metatarsophalangeal joint involving the first digit No nathalie cortical bone destruction No foreign body Soft tissue swelling dorsum of the foot IMPRESSION: No nathalie cortical bone destruction Consider follow-up MRI foot repeat as clinically warranted
--- NOTE | 2025-05-19 15:46 | PD.EDRME ---
Rapid Medical Screening Exam RME Arrival date/time: 05/19/25 15:04 30-year-old male presents to the Emergency Department for complaints of infection to the right foot patient does report being insulin-dependent Chief Complaint: Extremity Problem,Nontraumatic Vital signs: Vital Signs Temperature 99.0 F 05/19/25 15:42 Pulse Rate 97 05/19/25 15:42 Respiratory Rate 20 05/19/25 15:42 Blood Pressure 132/87 H 05/19/25 15:42 Pulse Oximetry (%) 99 05/19/25 15:42 Oxygen Delivery Method Room Air 05/19/25 15:42
[2025-05-19 16:28] LABS: Lactate (Lactic Acid) 2.7 mMol/L (0.4-2.0)
[2025-05-19 16:40] LABS: Glucose Estimated Average 240 mg/dL (80-131); Hemoglobin A1C 10.0 % Hgb (4.8-6.0); Sed Rate (ESR) 60 mm/hr (0-15)
[2025-05-19 16:45] LABS: Basophils # (Auto) 0.0 Thou/mm3 (0.0-0.2); Basophils % (Auto) 0 % (0-2.5); Eosinophils # (Auto) 0.1 Thou/mm3 (0.0-0.5); Eosinophils % (Auto) 1 % (0-10); Hematocrit 37.5 % (41.0-53.0); Hemoglobin 12.5 g/dL (13.5-16.0); Immature Granulocytes Auto 0.03 Thou/mm3 (0.00-0.00); Lymphocytes # (Auto) 1.7 Thou/mm3 (1.0-4.8); Lymphocytes % (Auto) 23 % (10-50); Mean Corpuscular HGB Conc 33.3 g/dl (31.0-37.0); Mean Corpuscular Hemoglobin 30.7 pg (25.0-35.0); Mean Corpuscular Volume 92 fL (80-100); Monocytes # (Auto) 0.7 Thou/mm3 (0.0-0.8); Monocytes % (Auto) 10 % (0-12); Neutrophils # (Auto) 4.6 Thou/mm3 (1.8-7.7); Neutrophils % (Auto) 65 % (37-80); Nucleated Red Blood Cell # 0.00 Thou/mm3 (0.00-0.00); Nucleated Red Blood Cell % 0 /100 WBC (0); Platelet Count 323 Thou/mm3 (140-440); RDW Standard Deviation 40.5 fL (35.1-43.9); Red Blood Count 4.07 Miln/mm3 (4.50-5.90); White Blood Count 7.1 Thou/mm3 (3.8-10.6)
[2025-05-19 17:02] LABS: Alanine Aminotransferase 51 U/L (10-49); Albumin, Serum 4.2 gm/dL (3.5-5.0); Albumin/Globulin Ratio 1.6 (1.2-2.2); Alkaline Phosphatase 136 U/L (46-116); Anion Gap 11 (7-16); Aspartate Amino Transferase 28 U/L (0-34); BUN/Creatinine Ratio 14 Ratio (12-20); Bilirubin,Total 0.3 mg/dL (0.3-1.2); Blood Urea Nitrogen 19 mg/dL (9-23); C-Reactive Protein 2.2 mg/dL (0.0-0.9); Calcium 9.5 mg/dL (8.3-10.6); Calcium (Corrected) 9.5 mg/dL (8.5-10.1); Carbon Dioxide 23.1 mMol/L (20.0-31.0); Chloride 104 mMol/L (98-107); Creatinine (Component) 1.4 mg/dL (0.6-1.3); Estimated Creatinine Clearance 89.2 mL/min (>60); Globulin 2.7 gm/dL (2.3-3.5); Glucose 207 mg/dL (74-106); Osmolality,Calculated 283 (275-295); Potassium 4.4 mMol/L (3.4-5.1); Procalcitonin 0.14 ng/ml (0.0-0.49); Sodium 138 mMol/L (136-145); Total Protein 6.9 gm/dL (5.7-8.2); eGFR > 60 See Note
[2025-05-19 19:27] LABS: Reflex Lactate? Y
== END 2025-05-19 18:18 | disposition left against medical advice (07) ==
PROVIDERS: Nurse Practitioner Primary Care; Emergency Provider Emergency Medicine; PCP Family Medicine
DX: L08.9 Local infection of the skin and subcutaneous tissue, unspecified (principal); Z53.29 Procedure and treatment not carried out because of patient's decision for other reasons; Z79.4 Long term (current) use of insulin
CPT/HCPCS: 36415; 73630; 80053; 80307; 83036; 83605; 84145; 85025; 85652; 86140; 87040; 99283

== ENCOUNTER 2025-05-20 10:30 | Emergency (ER) | payer MEDICAID, SELFPAY ==
[2025-05-20 10:31] VITALS: BMI 29.2
[2025-05-20 11:13] VITALS: BP 130/72; PULSE 88; RESP 18; TEMP 36.9; O2SAT 98
--- NOTE | 2025-05-20 11:31 | PD.EDANKLE ---
Lower Extremity Injury RME/HPI General Chief Complaint: Ankle/Foot Injury Stated Complaint: ULCER ON RIGHT FOOT x 1 WEEK, LEFT AMA YESTERDAY Time Seen by Provider: 05/20/25 11:22 Arrival date/time: 05/20/25 10:30 Limitations: no limitations RME / HPI RME / HPI Narrative: 30-year-old male who is a very poor historian. He endorses a history of insulin-dependent diabetes and methamphetamine abuse. Patient was seen here yesterday but left AGAINST MEDICAL ADVICE. He states he developed a right foot wound along the plantar surface about a week ago. He initially states he has not been evaluated for this and has not seen his primary care provider. Upon further investigation, it is noted that patient was here yesterday, obtain labs, had an x-ray, but left AGAINST MEDICAL ADVICE. Related Data Home Medications ?Medication ?Instructions ?Recorded ?Confirmed insulin glargine 100 unit/mL (3 15 unit subcut QDAY 07/17/24 07/17/24 mL) subcutaneous pen (Basaglar KwikPen U-100 Insulin) insulin glargine 100 unit/mL (3 20 unit subcut HS 07/17/24 07/17/24 mL) subcutaneous pen (Basaglar KwikPen U-100 Insulin) Previous Rx's ?Medication ?Instructions ?Recorded blood sugar diagnostic (Accu-Chek #50 ea 07/20/24 Karena Plus test strips) blood-glucose sensor (FreeStyle #2 ea 07/20/24 Adriana 3 Sensor device) lancets 18 gauge #100 ea 07/20/24 losartan 25 mg tablet 25 mg PO QDAY #30 tabs 07/20/24 clindamycin HCl 300 mg capsule 300 mg PO Q6H #40 caps 04/03/25 doxycycline monohydrate 100 mg 100 mg PO BID #20 caps 04/03/25 capsule mupirocin 2 % topical ointment 1 applic topical TID #22 grams 04/03/25 ciprofloxacin HCl 500 mg tablet 500 mg PO Q12H #14 tabs 05/20/25 Allergies Allergy/AdvReac Type Severity Reaction Status Date / Time No Known Allergies Allergy Verified 05/20/25 17:42 Review of Systems Review of Systems Systems Reviewed: All systems reviewed, normal except as documented ED Exam General Limitations: Present no limitations General appearance: Present alert and in no apparent distress Head Head exam: Present atraumatic Eye Eye exam: Present normal appearance, PERRL and EOMI ENT ENT exam: Present normal exam, normal oropharynx and mucous membranes moist Neck Neck exam: Present normal inspection, full ROM and trachea midline Chest Chest inspection: Present normal inspection and symmetric chest wall rise Respiratory Respiratory exam: Present normal lung sounds bilaterally Cardiovascular Cardiovascular exam: Present regular rate, normal rhythm and normal heart sounds Abdominal Exam Abdominal exam: Present soft and normal bowel sounds Extremities Exam Extremities exam: Present normal inspection and full ROM Back Exam Back exam: Present normal inspection and full ROM Neurological Exam Neurological exam: Present alert and oriented X3 Psychiatric Psychiatric exam: Present anxious Skin Skin exam: Present warm, dry and other (2 cm x 5 cm x 3 cm open wound along the medial/plantar surface of the right foot superficial to fransisca 1st metatarsal head. No active drainage. ) Course Quality Measures none Orders Category Date Time Status UA, C/S IF [Urinalysis, C/S if Indicated] Stat Lab 05/20/25 11:55 Completed Wound Cult and GS, Anaer Stat Lab 05/20/25 13:15 Completed Ciprofloxacin HCl [Ciprofloxacin] Med 05/20/25 11:30 Discontinued 500 mg PO X1 ONE Sodium Chloride 0.9% 1000 ml [Ns] 1,000 ml Med 05/20/25 11:23 Discontinued IV 999 mls/hr Vital Signs Vital signs: Vital Signs Temperature 98.5 F 05/20/25 11:13 Pulse Rate 88 05/20/25 11:13 Respiratory Rate 18 05/20/25 11:13 Blood Pressure 130/72 05/20/25 11:13 Pulse Oximetry (%) 98 05/20/25 11:13 Oxygen Delivery Method Room Air 05/20/25 11:13 Extremity Injury, Lower MDM Narrative MDM Narrative:: 30-year-old male who is a very poor historian. He endorses a history of insulin-dependent diabetes and methamphetamine abuse. Patient was seen here yesterday but left AGAINST MEDICAL ADVICE. He states he developed a right foot wound along the plantar surface about a week ago. He initially states he has not been evaluated for this and has not seen his primary care provider. Upon further investigation, it is noted that patient was here yesterday, obtain labs, had an x-ray, but left AGAINST MEDICAL ADVICE. While performing wound care, I asked that the patient call his primary care provider office to obtain a follow-up appointment. At this time he showed me that he is currently taking antibiotics, he states he was seen in an ER in [place] 2 to 3 days ago and was started on doxycycline for his foot wound. He did call the clinic but hung up before contacting anyone for an appointment. He is then stated he had a follow-up appointment on Friday with another clinic for his foot wound. Workup was initiated however the patient eloped. He had left his doxycycline in the exam room. Patient data External records reviewed:: None Clinical information provided by:: patient Social determinants that could affect healthcare access:: none Patient has the following chronic illnesses:: DM, substance abuse How is presenting disease/condition affected by chronic disease/condition?: no chronic disease Evaluation data The following diagnostics were reviewed and interpreted by me:: lab results and radiology exam(s) Lab and/or radiology exams considered but not ordered:: n/a Interpretation Summary: No evidence of osteomyelitis Medications / Prescriptions Medications or Prescriptions considered but not ordered:: N/A Medication administrations:: Medication Administration History Discontinued Medications Ciprofloxacin (Ciprofloxacin Hcl 250 Mg Tablet) 500 mg PO X1 ONE Stop: 05/20/25 11:31 Sodium Chloride (Ns) 1,000 mls @ 999 mls/hr IV .Q1H1M ONE Stop: 05/20/25 12:23 see above Consultations Consultation(s) initiated? (list below): No Diagnosis Extremity Injury, Lower Differential Diagnosis: ankle fracture and other (Ulcer, abscess, fasciitis, osteomyelitis) Most likely diagnosis given after review of the tests above:: Diabetic foot wound Admission Indicated Admission indicated?: not indicated Admission Request Was there a request for admission?: No Disposition Plan Disposition Plan: other (specify) (ELOPED ) Discharge Plan Plan Patient Disposition: Elopement Patient condition on transfer: Stable Prescriptions/Referrals Prescriptions/Med Rec: No Action insulin glargine [Basaglar KwikPen U-100 Insulin] 100 unit/mL (3 mL) insulin pen 15 unit SUBCUT QDAY insulin glargine [Basaglar KwikPen U-100 Insulin] 100 unit/mL (3 mL) insulin pen 20 unit SUBCUT HS losartan 25 mg tablet 25 mg PO QDAY Qty: 30 0RF (DME) [employer] Adriana 3 Sensor Device See Rx Instructions .Route Qty: 2 3RF Rx Instructions: As directed (DME) lancets 18 gauge misc See Rx Instructions .Route Qty: 100 2RF Rx Instructions: As directed (DME) Accu-Chek Karena Plus test strp Strip See Rx Instructions .Route Qty: 50 2RF Rx Instructions: As directed clindamycin HCl 300 mg capsule 300 mg PO Q6H Qty: 40 0RF mupirocin 2 % ointment 1 applic topical TID Qty: 22 0RF doxycycline monohydrate 100 mg capsule 100 mg PO BID Qty: 20 0RF ciprofloxacin HCl 500 mg tablet 500 mg PO Q12H Qty: 14 0RF Problem List Clinical Impression: Diabetic infection of right foot, Methamphetamine abuse Patient/Caregiver Discharge Instructions Education Materials: Diabetes Treating Minor Foot ... Additional Instructions: - It is very important that you begin treating your diabetes and foot wounds appropriately. - Your wounds are significant and you need very close follow-up. - It is very important that you discontinue methamphetamine use as this is affecting your ability to care for yourself and your wounds. - You are at very high risk of losing your toes, and foot if you do not treat your wounds and diabetes more aggressively. - You may return here for follow-up in the next few days for wound recheck. - Return here at anytime for any worsening or emergent changes. Print Language: Stateless
[2025-05-20 12:16] LABS: Bilirubin,Urine Negative (Negative); Blood,Urine 2+ (Negative); Clarity,Urine Clear (Clear/Hazy); Collection Type, Urine Voided; Color,Urine Lt-Yellow (Lt Yel-Yel); Culture Indicated,Urine Not Indicated; Glucose, Urine 4+ (Negative); Ketones,Urine Negative (Negative); Leukocyte Esterase,Urine Negative (Negative); Nitrite,Urine Negative (Negative); PH,Urine 6.0 (5.0-7.0); Protein,Urine 2+ (Neg - Trace); RBC,Urine 4 /hpf (0-3); Specific Gravity,Urine 1.029 (1.001-1.035); Squamous Epithelial Cell,Urine < 1 /hpf (0-5); Urobilinogen,Urine Negative mg/dL (0.0-1.0); WBC,Urine 2 /hpf (0-5)
--- NOTE | 2025-05-20 12:16 | PC.NURSE ---
NA x 2 @ [id number], [phone] called for in ED and outside.
--- NOTE | 2025-05-20 13:21 | PC.NURSE ---
no answer in lobby when called by lab
== END 2025-05-20 13:25 | disposition left against medical advice (07) ==
LOC: SERX 11:50
PROVIDERS: Emergency Provider Physician Assistant Medical; PCP Family Medicine
DX: E11.621 Type 2 diabetes mellitus with foot ulcer (principal); L97.419 Non-pressure chronic ulcer of right heel and midfoot with unspecified severity; Z79.4 Long term (current) use of insulin; F15.10 Other stimulant abuse, uncomplicated; Z53.29 Procedure and treatment not carried out because of patient's decision for other reasons
CPT/HCPCS: 80053; 81001; 85025; 85652; 86140; 87070; 87075; 87077; 87186; 87205; 99282

== ENCOUNTER 2025-05-20 17:39 | Emergency (ER) | payer MEDICAID, SELFPAY ==
[2025-05-20 17:41] VITALS: BMI 29.2
[2025-05-20 18:41] VITALS: BP 152/82; PULSE 100; RESP 18; TEMP 36.9; O2SAT 98
--- NOTE | 2025-05-20 18:45 | XR_ITS ---
Examination: Foot, left, 3 views Technique: AP, oblique, lateral views foot, 3 views Date and time of exam: May 20, 2025, 1851 hours, comparison April 03, 2025. INDICATIONS: Nonhealing wound left foot at the level of the metatarsals, diabetic FINDINGS: Soft tissue swelling dorsum left foot No foreign body No cortical bone destruction No fracture IMPRESSION: No cortical bone destruction Consider repeat MRI foot without contrast follow up as clinically warranted
[2025-05-20 19:53] LABS: Sed Rate (ESR) 59 mm/hr (0-15)
[2025-05-20 19:56] LABS: Basophils # (Auto) 0.1 Thou/mm3 (0.0-0.2); Basophils % (Auto) 1 % (0-2.5); Eosinophils # (Auto) 0.2 Thou/mm3 (0.0-0.5); Eosinophils % (Auto) 3 % (0-10); Hematocrit 37.8 % (41.0-53.0); Hemoglobin 12.8 g/dL (13.5-16.0); Immature Granulocytes Auto 0.03 Thou/mm3 (0.00-0.00); Lymphocytes # (Auto) 2.2 Thou/mm3 (1.0-4.8); Lymphocytes % (Auto) 28 % (10-50); Mean Corpuscular HGB Conc 33.9 g/dl (31.0-37.0); Mean Corpuscular Hemoglobin 31.1 pg (25.0-35.0); Mean Corpuscular Volume 92 fL (80-100); Monocytes # (Auto) 0.7 Thou/mm3 (0.0-0.8); Monocytes % (Auto) 9 % (0-12); Neutrophils # (Auto) 4.6 Thou/mm3 (1.8-7.7); Neutrophils % (Auto) 59 % (37-80); Nucleated Red Blood Cell # 0.00 Thou/mm3 (0.00-0.00); Nucleated Red Blood Cell % 0 /100 WBC (0); Platelet Count 316 Thou/mm3 (140-440); RDW Standard Deviation 41.1 fL (35.1-43.9); Red Blood Count 4.12 Miln/mm3 (4.50-5.90); White Blood Count 7.8 Thou/mm3 (3.8-10.6)
--- NOTE | 2025-05-20 19:56 | PD.EDSKIN ---
ED Skin Abcess FB-RME/HPI General Chief complaint: Skin/Abscess/Foreign Body Stated complaint: NEEDS ADMIT FOR FOOT WOUND Time Seen by Provider: 05/20/25 18:43 Source: patient Arrival date/time: 05/20/25 17:39 Mode of arrival: ambulatory RME / HPI RME / HPI narrative: 30-year-old male who endorses a history of insulin-dependent diabetes and methamphetamine abuse. Patient was seen here yesterday but left AGAINST MEDICAL ADVICE. He states he developed a right foot wound along the plantar surface about a week ago. He initially states he has not been evaluated for this and has not seen his primary care provider. Upon further investigation, it is noted that patient was here yesterday, obtain labs, had an x-ray, but left AGAINST MEDICAL ADVICE. Patient was also seen earlier today but eloped from the emergency room. Patient states he now developed a linear, wound, at the plantar surface of his left foot. Related Data Home Medications ?Medication ?Instructions ?Recorded ?Confirmed insulin glargine 100 unit/mL (3 15 unit subcut QDAY 07/17/24 07/17/24 mL) subcutaneous pen (Basaglar KwikPen U-100 Insulin) insulin glargine 100 unit/mL (3 20 unit subcut HS 07/17/24 07/17/24 mL) subcutaneous pen (Basaglar KwikPen U-100 Insulin) Previous Rx's ?Medication ?Instructions ?Recorded blood sugar diagnostic (Accu-Chek #50 ea 07/20/24 Karena Plus test strips) blood-glucose sensor (FreeStyle #2 ea 07/20/24 Adriana 3 Sensor device) lancets 18 gauge #100 ea 07/20/24 losartan 25 mg tablet 25 mg PO QDAY #30 tabs 07/20/24 clindamycin HCl 300 mg capsule 300 mg PO Q6H #40 caps 04/03/25 doxycycline monohydrate 100 mg 100 mg PO BID #20 caps 04/03/25 capsule mupirocin 2 % topical ointment 1 applic topical TID #22 grams 04/03/25 ciprofloxacin HCl 500 mg tablet 500 mg PO Q12H #14 tabs 05/20/25 Allergies Allergy/AdvReac Type Severity Reaction Status Date / Time No Known Allergies Allergy Verified 05/20/25 17:42 Review of Systems Review of Systems Systems Reviewed: All systems reviewed, normal except as documented ED Exam General General appearance: Present alert Head Head exam: Present atraumatic Eye Eye exam: Present normal appearance, PERRL and EOMI ENT ENT exam: Present normal exam, normal oropharynx and mucous membranes moist Neck Neck exam: Present normal inspection, full ROM and trachea midline Chest Chest inspection: Present normal inspection and symmetric chest wall rise Respiratory Respiratory exam: Present normal lung sounds bilaterally Cardiovascular Cardiovascular exam: Present regular rate, normal rhythm and normal heart sounds Abdominal Exam Abdominal exam: Present soft and normal bowel sounds Extremities Exam Extremities exam: Present normal inspection and full ROM Back Exam Back exam: Present normal inspection and full ROM Neurological Exam Neurological exam: Present alert and oriented X3 Psychiatric Psychiatric exam: Present normal affect and normal mood Skin Skin exam: Present warm and other (There is a 1.5 cm, linear, superficial, open wound at the plantar surface of the left foot near the 1st and 2nd metatarsals. See previous note from today regarding his examination of the contralateral foot.) Course Quality Measures none Orders Category Date Time Status XR foot comp LT min 3V Stat Exams 05/20/25 18:45 Completed CBC Stat Lab 05/20/25 19:25 Completed CMP [Comprehensive Metabolic Panel] Stat Lab 05/20/25 19:25 Completed CRP [C-Reactive Protein] Stat Lab 05/20/25 19:25 Completed Sed Rate (ESR) Stat Lab 05/20/25 19:25 Completed Ciprofloxacin HCl [Ciprofloxacin] Med 05/20/25 19:59 Discontinued 500 mg PO X1 ONE Vital Signs Vital signs: Vital Signs Temperature 98.5 F 05/20/25 18:41 Pulse Rate 100 05/20/25 18:41 Respiratory Rate 18 05/20/25 18:41 Blood Pressure 152/82 H 05/20/25 18:41 Pulse Oximetry (%) 98 05/20/25 18:41 Oxygen Delivery Method Room Air 05/20/25 18:41 Skin / Abscess / Foreign Body MDM Narrative MDM Narrative:: 30-year-old male who endorses a history of insulin-dependent diabetes and methamphetamine abuse. Patient was seen here yesterday but left AGAINST MEDICAL ADVICE. He states he developed a right foot wound along the plantar surface about a week ago. He initially states he has not been evaluated for this and has not seen his primary care provider. Upon further investigation, it is noted that patient was here yesterday, obtain labs, had an x-ray, but left AGAINST MEDICAL ADVICE. Patient was also seen earlier today but eloped from the emergency room. Patient had left his bottle of doxycycline in the exam room when he had left. Patient states he now developed a linear, wound, at the plantar surface of his left foot. Plain films obtained of the left foot and there is no radiographic evidence of any foreign body or osteomyelitis. His sed rate is elevated at 59. We had another detailed conversation regarding his care and risk factors. He will be discharged with a Rx of Robin. He is encouraged to follow up with is PCP. He is also advised that he may follow up here as needeed for a safety net. Patient data External records reviewed:: [facility] previous records Clinical information provided by:: patient Social determinants that could affect healthcare access:: substance use Patient has the following chronic illnesses:: substance abuse, DM How is presenting disease/condition affected by chronic disease/condition?: exacerbated by Evaluation data The following diagnostics were reviewed and interpreted by me:: lab results Lab and/or radiology exams considered but not ordered:: n/a Interpretation Summary: hyperglycemia, CRP 1.4 Medications / Prescriptions Medications or Prescriptions considered but not ordered:: n/a Medication administrations:: Medication Administration History Discontinued Medications Ciprofloxacin (Ciprofloxacin Hcl 250 Mg Tablet) 500 mg PO X1 ONE Stop: 05/20/25 20:00 Last Admin: 05/20/25 20:13 Dose: 500 mg Documented By: KASI see above Consultations Consultation(s) initiated? (list below): No Diagnosis Skin/Abscess Differential Diagnosis: abscess of skin or subcutaneous tissue, cellulitis and impetigo Most likely diagnosis given after review of the tests above:: wound recheck Admission Indicated Admission indicated?: not indicated Admission Request Was there a request for admission?: No Disposition Plan Disposition Plan: Discharge Discharge Attestation Discharge Attestation: The patient and all family members were given an opportunity to ask questions and understood the discharge instructions. Discharge instructions specifically effects, indications for sooner follow up or return to the emergency department, and the expected course of current diagnosis. Patient condition: Stable Discharge Plan Plan Patient Disposition: HOME (Self Care) Patient condition on transfer: Stable Prescriptions/Referrals Prescriptions/Med Rec: New ciprofloxacin HCl 500 mg tablet 500 mg PO Q12H Qty: 14 0RF No Action insulin glargine [Basaglar KwikPen U-100 Insulin] 100 unit/mL (3 mL) insulin pen 15 unit SUBCUT QDAY insulin glargine [Basaglar KwikPen U-100 Insulin] 100 unit/mL (3 mL) insulin pen 20 unit SUBCUT HS losartan 25 mg tablet 25 mg PO QDAY Qty: 30 0RF (DME) FreeStyle Adriana 3 Sensor Device See Rx Instructions .Route Qty: 2 3RF Rx Instructions: As directed (DME) lancets 18 gauge misc See Rx Instructions .Route Qty: 100 2RF Rx Instructions: As directed (DME) Accu-Chek Karena Plus test strp Strip See Rx Instructions .Route Qty: 50 2RF Rx Instructions: As directed clindamycin HCl 300 mg capsule 300 mg PO Q6H Qty: 40 0RF mupirocin 2 % ointment 1 applic topical TID Qty: 22 0RF doxycycline monohydrate 100 mg capsule 100 mg PO BID Qty: 20 0RF Problem List Clinical Impression: Methamphetamine abuse, Encounter for wound re-check, Diabetes Patient/Caregiver Discharge Instructions Education Materials: ED Wound Care Additional Instructions: - It is very important that he follow-up closely with your primary doctor next week. - You will need to obtain better control of your blood sugar. - Continue use of methamphetamine will hinder your decision-making and your disease may worsen. - You left your antibiotic when you eloped from your prior visit today. We are sending a new prescription into your pharmacy. We are prescribing ciprofloxacin 500 mg to be taken every 12 hours for 1 week. - Continue wound care. - Please do not hesitate to return to the emergency room at anytime for any worsening or emergent changes. Print Language: Citizen [place] Stand Alone Forms: [employer] Info., Patient Portal Info Letter
[2025-05-20] MEDS: CIPROFLOXACIN HCL 250 MG TABLET 500 MG PO (20:13)
[2025-05-20 20:18] LABS: Anion Gap 9 (7-16); BUN/Creatinine Ratio 13 Ratio (12-20); Blood Urea Nitrogen 16 mg/dL (9-23); Carbon Dioxide 27.4 mMol/L (20.0-31.0); Chloride 106 mMol/L (98-107); Creatinine (Component) 1.2 mg/dL (0.6-1.3); Estimated Creatinine Clearance 104.1 mL/min (>60); Glucose 191 mg/dL (74-106); Potassium 4.6 mMol/L (3.4-5.1); Sodium 142 mMol/L (136-145); eGFR > 60 See Note
[2025-05-20 20:19] LABS: Alanine Aminotransferase 39 U/L (10-49); Albumin, Serum 4.5 gm/dL (3.5-5.0); Albumin/Globulin Ratio 1.5 (1.2-2.2); Alkaline Phosphatase 136 U/L (46-116); Aspartate Amino Transferase 21 U/L (0-34); Bilirubin,Total 0.3 mg/dL (0.3-1.2); Calcium 9.9 mg/dL (8.3-10.6); Calcium (Corrected) 9.9 mg/dL (8.5-10.1); Globulin 3.1 gm/dL (2.3-3.5); Osmolality,Calculated 289 (275-295); Total Protein 7.6 gm/dL (5.7-8.2)
[2025-05-20 20:41] VITALS: BP 142/72; PULSE 76; RESP 18; TEMP 36.8; O2SAT 98
[2025-05-20 21:11] LABS: C-Reactive Protein 1.4 mg/dL (0.0-0.9)
== END 2025-05-20 20:42 | disposition home or self-care (01) ==
PROVIDERS: Physician Assistant Medical; Emergency Provider Emergency Medicine; PCP Family Medicine
DX: S91.302A Unspecified open wound, left foot, initial encounter (principal); X58.XXXA Exposure to other specified factors, initial encounter; F15.10 Other stimulant abuse, uncomplicated; E11.9 Type 2 diabetes mellitus without complications; Z79.4 Long term (current) use of insulin
CPT/HCPCS: 36415; 73630; 80053; 85025; 85652; 86140; 99283; A9270

== ENCOUNTER → 2025-07-04 | Outpatient (CLI) | payer MEDICAID, SELFPAY | END | disposition home or self-care (01) | LOC: SWHD 08:04 | PROVIDERS: PCP Student in an Organized Health Care Education/Training Program; Referring Provider Student in an Organized Health Care Education/Training Program; Visit Provider Student in an Organized Health Care Education/Training Program | DX: E11.621 Type 2 diabetes mellitus with foot ulcer (principal); L97.412 Non-pressure chronic ulcer of right heel and midfoot with fat layer exposed; L97.511 Non-pressure chronic ulcer of other part of right foot limited to breakdown of skin; I10 Essential (primary) hypertension; R60.0 Localized edema; E11.40 Type 2 diabetes mellitus with diabetic neuropathy, unspecified; F41.9 Anxiety disorder, unspecified; M21.00 Valgus deformity, not elsewhere classified, unspecified site; Z79.4 Long term (current) use of insulin; Z91.198 Patient's noncompliance with other medical treatment and regimen for other reason; Z87.891 Personal history of nicotine dependence | CPT/HCPCS: 11042; 99213; A9270; G0463 ==

== ENCOUNTER → 2025-08-01 | Outpatient (CLI) | payer MEDICAID, SELFPAY | END | disposition home or self-care (01) | LOC: SWHD 14:07 | PROVIDERS: PCP Family Medicine; Referring Provider Family Medicine; Visit Provider Student in an Organized Health Care Education/Training Program | DX: E11.621 Type 2 diabetes mellitus with foot ulcer (principal); L97.411 Non-pressure chronic ulcer of right heel and midfoot limited to breakdown of skin; L97.511 Non-pressure chronic ulcer of other part of right foot limited to breakdown of skin; I10 Essential (primary) hypertension; E11.40 Type 2 diabetes mellitus with diabetic neuropathy, unspecified; R60.0 Localized edema; Z79.4 Long term (current) use of insulin; Z91.198 Patient's noncompliance with other medical treatment and regimen for other reason; Z87.891 Personal history of nicotine dependence; M21.00 Valgus deformity, not elsewhere classified, unspecified site; F41.9 Anxiety disorder, unspecified | CPT/HCPCS: 11042; 11045; A9270 ==

== ENCOUNTER 2025-09-23 18:04 | Emergency (ER) | payer MEDICAID, SELFPAY ==
[2025-09-23 18:05] VITALS: BMI 28.2
[2025-09-23 18:26] VITALS: BP 133/80; PULSE 90; RESP 17; TEMP 36.7; O2SAT 100
--- NOTE | 2025-09-23 18:44 | PC.NURSE ---
Pt did not answer when name was called and was not found outside.
--- NOTE | 2025-09-23 19:06 | PD.EDRME ---
Rapid Medical Screening Exam RME Arrival date/time: 09/23/25 18:04 30M with history of meth us, DM and HTN presents to ED with several days of ear pain, congestion, cough, fevers/chills, and near-syncope. Patient hasn't been taking his insulin because he's been sick. Chief Complaint: Nausea/Vomiting/Diarrhea Time Seen by Provider: 09/23/25 19:07 Vital signs: Vital Signs Temperature 98.0 F 09/23/25 18:26 Pulse Rate 90 09/23/25 18:26 Respiratory Rate 17 09/23/25 18:26 Blood Pressure 133/80 H 09/23/25 18:26 Pulse Oximetry (%) 100 09/23/25 18:26 Oxygen Delivery Method Room Air 09/23/25 18:26 Exam: Mild bilateral ear effusions. Clear oropharynx. Clinical Impression: URI vs flu vs CAP vs DKA vs hyperglycemia
[2025-09-23 19:26] LABS: Base Excess, Venous 4 (-3-3); O2 Saturation, Venous 55 % (96-97); PCO2, Venous 51 mmHg (36-56); PO2, Venous 28 mmHg (15-58); pH, Venous 7.38 (7.33-7.66)
[2025-09-23 19:29] LABS: Beta Hydroxybutyrate 0.1 mmol/L (<0.6)
[2025-09-23 19:46] LABS: Basophils # (Auto) 0.0 Thou/mm3 (0.0-0.2); Basophils % (Auto) 0 % (0-2.5); Eosinophils # (Auto) 0.0 Thou/mm3 (0.0-0.5); Eosinophils % (Auto) 0 % (0-10); Hematocrit 38.7 % (41.0-53.0); Hemoglobin 12.8 g/dL (13.5-16.0); Immature Granulocytes Auto 0.02 Thou/mm3 (0.00-0.00); Lymphocytes # (Auto) 1.5 Thou/mm3 (1.0-4.8); Lymphocytes % (Auto) 20 % (10-50); Mean Corpuscular HGB Conc 33.1 g/dl (31.0-37.0); Mean Corpuscular Hemoglobin 29.5 pg (25.0-35.0); Mean Corpuscular Volume 89 fL (80-100); Monocytes # (Auto) 0.3 Thou/mm3 (0.0-0.8); Monocytes % (Auto) 4 % (0-12); Neutrophils # (Auto) 5.4 Thou/mm3 (1.8-7.7); Neutrophils % (Auto) 74 % (37-80); Nucleated Red Blood Cell # 0.00 Thou/mm3 (0.00-0.00); Nucleated Red Blood Cell % 0 /100 WBC (0); Platelet Count 313 Thou/mm3 (140-440); RDW Standard Deviation 37.8 fL (35.1-43.9); Red Blood Count 4.34 Miln/mm3 (4.50-5.90); White Blood Count 7.3 Thou/mm3 (3.8-10.6)
[2025-09-23 19:55] LABS: Alanine Aminotransferase 22 U/L (10-49); Albumin, Serum 3.7 gm/dL (3.5-5.0); Albumin/Globulin Ratio 1.1 (1.2-2.2); Alkaline Phosphatase 129 U/L (46-116); Anion Gap 6 (7-16); Aspartate Amino Transferase 18 U/L (0-34); BUN/Creatinine Ratio 9 Ratio (12-20); Bilirubin,Total 0.2 mg/dL (0.3-1.2); Blood Urea Nitrogen 14 mg/dL (9-23); Calcium 8.8 mg/dL (8.3-10.6); Calcium (Corrected) 9.0 mg/dL (8.5-10.1); Carbon Dioxide 29.0 mMol/L (20.0-31.0); Chloride 101 mMol/L (98-107); Creatinine (Component) 1.5 mg/dL (0.6-1.3); Estimated Creatinine Clearance 84.3 mL/min (>60); Globulin 3.5 gm/dL (2.3-3.5); Potassium 4.5 mMol/L (3.4-5.1); Sodium 136 mMol/L (136-145); Total Protein 7.2 gm/dL (5.7-8.2); eGFR > 60 See Note
[2025-09-23 20:08] LABS: Osmolality,Calculated 294 (275-295)
[2025-09-23 20:10] LABS: Glucose 489 mg/dL (74-106)
[2025-09-23 20:10] LABS: Collection Type, Urine Clean Catch; Squamous Epithelial Cell,Urine 0 /hpf (0-5)
--- NOTE | 2025-09-23 20:11 | PC.NURSE ---
CALLED TO BE PUT TO ROOM ,NO ANSWER AT ER LOBBY OR OUTSIDE.
[2025-09-23 20:17] LABS: Bilirubin,Urine Negative (Negative); Blood,Urine 1+ (Negative); Clarity,Urine Clear (Clear/Hazy); Color,Urine Colorless (Lt Yel-Yel); Culture Indicated,Urine Not Indicated; Glucose, Urine 4+ (Negative); Ketones,Urine Negative (Negative); Leukocyte Esterase,Urine Negative (Negative); Nitrite,Urine Negative (Negative); PH,Urine 6.5 (5.0-7.0); Protein,Urine 1+ (Neg - Trace); RBC,Urine 5 /hpf (0-3); Specific Gravity,Urine 1.028 (1.001-1.035); Urobilinogen,Urine Negative mg/dL (0.0-1.0); WBC,Urine 1 /hpf (0-5)
--- NOTE | 2025-09-23 20:23 | PC.NURSE ---
NO ANSWER AT ER LOBBY OR OUTSIDE ER TO BE PUT TO ROOM.
== END 2025-09-23 20:23 | disposition left against medical advice (07) ==
LOC: SERX 20:27
PROVIDERS: Physician Assistant; Emergency Provider Emergency Medicine
DX: R05.9 Cough, unspecified (principal); H92.09 Otalgia, unspecified ear; R55 Syncope and collapse; R50.9 Fever, unspecified; E11.9 Type 2 diabetes mellitus without complications; I10 Essential (primary) hypertension; Z53.21 Procedure and treatment not carried out due to patient leaving prior to being seen by health care provider; Z79.4 Long term (current) use of insulin; T38.3X6A Underdosing of insulin and oral hypoglycemic [antidiabetic] drugs, initial encounter
CPT/HCPCS: 36415; 80053; 81001; 82010; 82803; 85025; 87502; 87635; 99282